=== PATIENT | male | born 1955 | race Caucasian/White ===

== ENCOUNTER 2024-02-11 16:46 | Inpatient (IN) | payer BC, MEDICAID ==
[~2024-02-11] VITALS: Ht 175.3 cm; Wt 45.4 kg
[2024-02-11 16:46] VITALS: PULSE 89; RESP 18; TEMP 97.3; O2SAT 98
[2024-02-11] MEDS: NACL 0.9% 2,000 ML IV SCH (17:55)
[2024-02-11 18:01] LABS: HEMATOCRIT 35.2 % (36-52); HEMOGLOBIN 11.4 g/dL (12.0-18.0); MEAN CORPUSCULAR HEMOGLOBIN 29 pg (27-31); MEAN CORPUSCULAR HGB CONC 32 g/dL (33-37); PLATELET COUNT (AUTO) 215 K/uL (140-450); RED BLOOD CELL COUNT(AUTO) 3.87 MIL/uL (4.20-6.10); RED CELL DISTRIBUTION WIDTH 14.8 % (11.6-13.7); WHITE BLOOD COUNT (AUTO) 17.8 K/uL (4.8-10.8)
[2024-02-11 18:14] LABS: ANION GAP 25.2 (8-16); CALCIUM 9.4 mg/dL (8.5-10.1); CARBON DIOXIDE 18.9 mmol/L (21-32); CREATININE 1.1 mg/dL (0.6-1.3); POTASSIUM 3.1 mmol/L (3.5-5.1)
[2024-02-11 18:16] LABS: INR 1.31 (0.8-1.2); PARTIAL THROMBOPLASTIN TIME 31.6 secs (22-35.6); PROTHROMBIN TIME 13.5 secs (10.8-13.4)
[2024-02-11] MEDS ORDERED: PIPERACILLIN/TAZOBACTAM 3.375 GM VIAL IV ONE (18:16)
[2024-02-11 18:20] LABS: ALANINE AMINOTRANSFERASE 3 U/L (12-78); ALBUMIN 1.6 g/dL (3.4-5.0); ALKALINE PHOSPHATASE 110 U/L (50-136); ASPARTATE AMINOTRANSFERASE 8 U/L (15-37); BILIRUBIN,DIRECT 0.4 mg/dL (0.0-0.3); CREATINE KINASE, TOTAL 9 U/L (39-308); TOTAL BILIRUBIN 0.8 mg/dL (0.0-1.0); TOTAL PROTEIN, SERUM 6.7 g/dL (6.4-8.2)
[2024-02-11] MEDS ORDERED: VANCOMYCIN 1,000 MG VIAL ONE (18:22)
[2024-02-11 18:26] LABS: LACTIC ACID 2.1 mmol/L (0.4-2.0)
[2024-02-11 18:28] LABS: LYMPHOCYTES % (MANUAL) 2 % (20-46); MONOCYTES % (MANUAL) 1 % (5-12); PLATELET ESTIMATE ADEQUATE
[2024-02-11] MEDS: PIPERACILLIN/TAZOBACTAM 3.375 GM in DEXTROSE 5% 50 ML IV ONE (18:36)
[2024-02-11] MEDS: VANCOMYCIN 1,000 MG in DEXTROSE 5% 250 ML IV ONE (18:44)
[2024-02-11] MEDS: KCL 20 MEQ IN 100 mL PREMIX 200 ML IV ONE (19:05)
[2024-02-11 19:45] LABS: APPEARANCE,URINE CLEAR (CLEAR); BILIRUBIN,URINE 1+ (NEGATIVE); BLOOD, URINE NEGATIVE (NEGATIVE); COLOR,URINE YELLOW (YELLOW); LEUKOCYTE ESTERASE ,URINE NEGATIVE (NEGATIVE); NITRITE, URINE NEGATIVE (NEGATIVE); PROTEIN,URINE NEGATIVE (NEGATIVE); UGLUCOSE 3+ (NEGATIVE); UROBILINOGEN,URINE 0.2 EU/dL (0.2 - 1)
[2024-02-11] MEDS: POTASSIUM CHLORIDE 20% 40 MEQ/15 ML UDC PO ONE ×2 (19:49→22:39)
[2024-02-11 20:32] LABS: ICTOTEST NEGATIVE (NEGATIVE)
[2024-02-11] MEDS ORDERED: OXYB5TAB44 PO (20:32)
[2024-02-11] MEDS ORDERED: IMO2 PO (20:32)
[2024-02-11] MEDS ORDERED: SITA100T8 PO (20:32)
[2024-02-11] MEDS ORDERED: DAPA10TA PO (20:32)
[2024-02-11] MEDS ORDERED: OMEP40EC23 PO (20:32)
[2024-02-11] MEDS ORDERED: PANT40EC PO (20:32)
[2024-02-11] MEDS ORDERED: GABA300C PO (20:32)
[2024-02-11] MEDS ORDERED: METF-1243 PO (20:32)
[2024-02-11] MEDS ORDERED: ATOR40TA PO (20:32)
[2024-02-11 21:12] LABS: ANION GAP 25.2 (8-16); CALCIUM 8.8 mg/dL (8.5-10.1); POTASSIUM 3.2 mmol/L (3.5-5.1)
[2024-02-11 22:00] LABS: ANION GAP 24.3 (8-16); CALCIUM 8.5 mg/dL (8.5-10.1); CARBON DIOXIDE 15.3 mmol/L (21-32); CREATININE 0.9 mg/dL (0.6-1.3); POTASSIUM 3.6 mmol/L (3.5-5.1)
[2024-02-11] MEDS ORDERED: DEXTROSE 50% 50 ML SYR IVP PRN (22:35)
[2024-02-11] MEDS ORDERED: ONDANSETRON 4 MG/2 ML VIAL IVP PRN (22:35)
[2024-02-11] MEDS: MAG SULF 2000 MG/WATER PREMIX 50 ML IV ONE (22:39)
[2024-02-11] MEDS: BLOOD GLUCOSE MONITORING 1 DEV DEV FS SCH (23:12)
[2024-02-11] MEDS: POTASSIUM CHL 20 MEQ/NACL 0.9% 1,000 ML IV SCH (23:24)
[2024-02-11] MEDS: INSULIN REGULAR, HUMAN 100 UNIT in NACL 0.9% 100 ML IV SCH (23:42)
[2024-02-12] VITALS (14 sets, daily range): BP systolic 101–127; BP diastolic 49–77; PULSE 78–95; RESP 15–20; TEMP 97.7–97.9; O2SAT 98–100
[2024-02-12] MEDS ORDERED: CLINDAMYCIN 600 MG/4 ML VIAL ONE ×2 (00:20→06:07)
[2024-02-12 00:25] LABS: BLOOD GAS PCO2 23.8 mmHg (35-45); BLOOD GAS PH 7.318 (7.35-7.45); BLOOD GAS PO2 107.5 mmHg (75-100)
[2024-02-12] MEDS: CLINDAMYCIN 600 MG in DEXTROSE 5% 50 ML IV SCH (00:25)
[2024-02-12 00:26] LABS: BLOOD GAS BASE EXCESS -12.4 mmol/L (-2.0-2.0); BLOOD GAS HCO3 11.9 mmol/L (22-26); BLOOD GAS O2 SAT% 98.1 % (92.0-98.5)
[2024-02-12 00:34] LABS: FLU A ANTIGEN negative (NEGATIVE); FLU B ANTIGEN NEGATIVE (NEGATIVE)
[2024-02-12 01:21] LABS: ANION GAP 20.1 (8-16); CALCIUM 8.4 mg/dL (8.5-10.1); CARBON DIOXIDE 16.9 mmol/L (21-32); CREATININE 0.9 mg/dL (0.6-1.3)
[2024-02-12 01:22] LABS: MAGNESIUM 2.8 mg/dL (1.8-2.4); PHOSPHORUS 1.3 mg/dL (2.5-4.9)
[2024-02-12 01:43] LABS: FLU A ANTIGEN negative (NEGATIVE); FLU B ANTIGEN NEGATIVE (NEGATIVE)
[2024-02-12 04:04] LABS: BASOPHILS % (AUTO) 0.3 % (0.0-2.0); HEMATOCRIT 31.1 % (36-52); HEMOGLOBIN 10.5 g/dL (12.0-18.0); LYMPHOCYTES # (AUTO) 0.3 K/uL (2.0-11.5); LYMPHOCYTES % (AUTO) 1.8 % (20.5-51.1); MEAN CORPUSCULAR HEMOGLOBIN 29 pg (27-31); MEAN CORPUSCULAR HGB CONC 34 g/dL (33-37); MEAN CORPUSCULAR VOLUME 87.1 fL (80-94); MONOCYTES # (AUTO) 0.7 K/uL (0.8-1.0); MONOCYTES % (AUTO) 3.9 % (1.7-9.3); NEUTROPHILS # (AUTO) 17.2 K/uL (1.8-7.7); PLATELET COUNT (AUTO) 196 K/uL (140-450); RED BLOOD CELL COUNT(AUTO) 3.57 MIL/uL (4.20-6.10); RED CELL DISTRIBUTION WIDTH 14.3 % (11.6-13.7); WHITE BLOOD COUNT (AUTO) 18.3 K/uL (4.8-10.8)
[2024-02-12 04:14] LABS: ANION GAP 15.1 (8-16); CALCIUM 8.4 mg/dL (8.5-10.1); CARBON DIOXIDE 20.8 mmol/L (21-32)
[2024-02-12 04:16] LABS: MAGNESIUM 2.6 mg/dL (1.8-2.4)
[2024-02-12 04:27] LABS: POTASSIUM 2.9 mmol/L (3.5-5.1)
[2024-02-12 04:29] LABS: PHOSPHORUS 0.8 mg/dL (2.5-4.9)
[2024-02-12] MEDS ORDERED: POTASSIUM CHL 40 MEQ/ D5-1/2NS 0 ML IV ONE (05:11)
[2024-02-12] MEDS ORDERED: KCL 20 MEQ IN 100 mL PREMIX 200 ML IV ONE (05:21)
[2024-02-12] MEDS: KCL 20 MEQ IN 100 mL PREMIX 200 ML IV SCH (05:27)
[2024-02-12] MEDS ORDERED: SODIUM PHOS / POTASSIUM PHOS 1 PKT PDR ONE ×2 (05:32→06:24)
[2024-02-12] MEDS: SODIUM PHOS / POTASSIUM PHOS 1 PKT PDR PO SCH (06:30)
[2024-02-12] MEDS: POTASSIUM PHOSPHATE 15 MM in NACL 0.9% 250 ML IV SCH ×3 (06:38→22:46)
[2024-02-12] MEDS: DEXT 5% / NACL 0.45% 1,000 ML IV ONE (06:57)
[2024-02-12] MEDS ORDERED: VANCOMYCIN PER PHARMACY MC PRN (08:25)
[2024-02-12 08:51] LABS: ANION GAP 10.5 (8-16); CALCIUM 8.3 mg/dL (8.5-10.1); CARBON DIOXIDE 24.4 mmol/L (21-32); CREATININE 0.8 mg/dL (0.6-1.3); POTASSIUM 3.9 mmol/L (3.5-5.1)
[2024-02-12 08:55] LABS: MAGNESIUM 2.3 mg/dL (1.8-2.4)
[2024-02-12] MEDS: DOCUSATE SODIUM 100 MG GELCAP PO SCH (09:00)
[2024-02-12] MEDS: GABAPENTIN 300 MG CAP PO SCH (09:00)
[2024-02-12] MEDS: ATORVASTATIN 20 MG TAB PO SCH (09:00)
[2024-02-12 09:14] LABS: PHOSPHORUS 0.8 mg/dL (2.5-4.9)
[2024-02-12 09:23] LABS: CHOL/HDL RATIO 1.9 (1-4.5)
[2024-02-12 10:24] LABS: BLOOD GAS PH 7.572 (7.35-7.45)
[2024-02-12 10:25] LABS: BLOOD GAS HCO3 20.7 mmol/L (22-26)
[2024-02-12 10:26] LABS: BLOOD GAS O2 SAT% 98.8 % (92.0-98.5)
[2024-02-12] MEDS: PANTOPRAZOLE 40 MG INJ VIAL IVP SCH (10:44)
[2024-02-12] MEDS: VANCOMYCIN 500 MG in NACL 0.9% 100 ML IV SCH (10:45)
[2024-02-12] MEDS: CLINDAMYCIN 600MG/D5W PM 50 ML IV SCH (12:24)
[2024-02-12] MEDS: PIPERACILLIN/TAZOBACTAM 3.375 GM in DEXTROSE 5% 50 ML IV SCH (12:27)
[2024-02-12 12:52] LABS: CREATININE 0.7 mg/dL (0.6-1.3)
[2024-02-12 12:57] LABS: MAGNESIUM 2.2 mg/dL (1.8-2.4)
[2024-02-12 12:58] LABS: ANION GAP 8.8 (8-16); CALCIUM 8.2 mg/dL (8.5-10.1); CARBON DIOXIDE 25.8 mmol/L (21-32)
[2024-02-12 13:03] LABS: PHOSPHORUS 0.8 mg/dL (2.5-4.9); POTASSIUM 2.6 mmol/L (3.5-5.1)
[2024-02-12] MEDS: HYDROGEN PEROXIDE 3% 240 ML BTL TP ONE (13:23)
[2024-02-12] MEDS: LIDOCAINE MPF 1% 5 ML ONE (13:23)
[2024-02-12] MEDS: BUPIVACAINE-MPF 0.5% 30 ML VIAL INJ ONE (14:55)
[2024-02-12] MEDS: LIDOCAINE/EPI MPF 2%1:200000 10 ML VIAL INJ ONE (14:58)
[2024-02-12 14:59] LABS: ANION GAP 10.2 (8-16); CARBON DIOXIDE 23.8 mmol/L (21-32); CREATININE 0.6 mg/dL (0.6-1.3)
[2024-02-12] MEDS: MIDAZOLAM 2 MG/2 ML VIAL ONE (15:50)
[2024-02-12] MEDS: fentaNYL citrate 0.05 MG/ML VIAL ONE (16:00)
[2024-02-12] MEDS: LIDOCAINE 2% 1000 MG/50 ML VIAL INJ ONE (16:05)
[2024-02-12] MEDS: ONDANSETRON 4 MG/2 ML VIAL ONE (16:48)
[2024-02-12] MEDS ORDERED: POTASSIUM PHOSPHATE 15 MM in NACL 0.9% 250 ML IV SCH (18:00)
[2024-02-12 19:01] LABS: ANION GAP 12.1 (8-16); CALCIUM 7.6 mg/dL (8.5-10.1); CARBON DIOXIDE 22.6 mmol/L (21-32); CREATININE 0.5 mg/dL (0.6-1.3)
[2024-02-12 19:02] LABS: POTASSIUM 2.7 mmol/L (3.5-5.1)
[2024-02-13] VITALS (21 sets, daily range): BP systolic 99–120; BP diastolic 48–70; PULSE 73–98; RESP 13–22; TEMP 97–98.1; O2SAT 96–99
[2024-02-13 00:58] LABS: ANION GAP 7.8 (8-16); CALCIUM 7.5 mg/dL (8.5-10.1); CARBON DIOXIDE 27.4 mmol/L (21-32); CREATININE 0.5 mg/dL (0.6-1.3)
[2024-02-13 00:59] LABS: MAGNESIUM 1.9 mg/dL (1.8-2.4); PHOSPHORUS 1.6 mg/dL (2.5-4.9)
[2024-02-13 01:02] LABS: POTASSIUM 2.2 mmol/L (3.5-5.1)
[2024-02-13 04:16] LABS: BASOPHILS % (AUTO) 0.1 % (0.0-2.0); EOSINOPHILS % (AUTO) 0.1 % (0.0-4.0); HEMATOCRIT 29.3 % (36-52); LYMPHOCYTES # (AUTO) 0.4 K/uL (2.0-11.5); LYMPHOCYTES % (AUTO) 3.3 % (20.5-51.1); MEAN CORPUSCULAR HEMOGLOBIN 29 pg (27-31); MEAN CORPUSCULAR HGB CONC 34 g/dL (33-37); MEAN CORPUSCULAR VOLUME 86.2 fL (80-94); MONOCYTES # (AUTO) 0.3 K/uL (0.8-1.0); MONOCYTES % (AUTO) 2.2 % (1.7-9.3); NEUTROPHILS # (AUTO) 11.6 K/uL (1.8-7.7); NEUTROPHILS % (AUTO) 94.3 % (42.2-75.2); PLATELET COUNT (AUTO) 157 K/uL (140-450); RED CELL DISTRIBUTION WIDTH 14.3 % (11.6-13.7); WHITE BLOOD COUNT (AUTO) 12.3 K/uL (4.8-10.8)
[2024-02-13 04:42] LABS: MAGNESIUM 1.9 mg/dL (1.8-2.4); PHOSPHORUS 1.6 mg/dL (2.5-4.9)
[2024-02-13 04:47] LABS: CALCIUM 7.3 mg/dL (8.5-10.1); CARBON DIOXIDE 25.1 mmol/L (21-32); CREATININE 0.6 mg/dL (0.6-1.3)
[2024-02-13 04:48] LABS: POTASSIUM 2.1 mmol/L (3.5-5.1)
[2024-02-13] MEDS: KCL 20 MEQ IN 100 mL PREMIX 200 ML IV ONE (08:51)
[2024-02-13] MEDS: INSULIN LANTUS 100 UNITS/ML 10 ML VIAL SUBQ SCH (10:38)
[2024-02-13] MEDS: BLOOD GLUCOSE MONITORING 1 DEV DEV FS SCH (11:36)
[2024-02-13] MEDS: VANCOMYCIN 750 MG in NACL 0.9% 250 ML IV SCH (11:43)
[2024-02-13] MEDS: BUPIVACAINE-MPF 0.5% 30 ML VIAL INJ ONE (14:17)
[2024-02-14] VITALS (7 sets, daily range): BP systolic 90–139; BP diastolic 46–73; PULSE 68–91; RESP 16–19; TEMP 97–98.4; O2SAT 96–99
[2024-02-14 07:37] LABS: BASOPHILS % (AUTO) 0.1 % (0.0-2.0); EOSINOPHILS % (AUTO) 0.2 % (0.0-4.0); HEMATOCRIT 27.2 % (36-52); HEMOGLOBIN 9.4 g/dL (12.0-18.0); LYMPHOCYTES # (AUTO) 0.5 K/uL (2.0-11.5); LYMPHOCYTES % (AUTO) 8.1 % (20.5-51.1); MEAN CORPUSCULAR HEMOGLOBIN 30 pg (27-31); MEAN CORPUSCULAR HGB CONC 34 g/dL (33-37); MEAN CORPUSCULAR VOLUME 85.6 fL (80-94); MONOCYTES # (AUTO) 0.2 K/uL (0.8-1.0); MONOCYTES % (AUTO) 3.6 % (1.7-9.3); NEUTROPHILS # (AUTO) 5.1 K/uL (1.8-7.7); PLATELET COUNT (AUTO) 117 K/uL (140-450); RED BLOOD CELL COUNT(AUTO) 3.18 MIL/uL (4.20-6.10); RED CELL DISTRIBUTION WIDTH 14.3 % (11.6-13.7); WHITE BLOOD COUNT (AUTO) 5.8 K/uL (4.8-10.8)
[2024-02-14 09:35] LABS: ANION GAP 7.2 (8-16); CALCIUM 6.8 mg/dL (8.5-10.1); CARBON DIOXIDE 28.9 mmol/L (21-32); CREATININE 0.5 mg/dL (0.6-1.3)
[2024-02-14 10:13] LABS: POTASSIUM 2.1 mmol/L (3.5-5.1)
[2024-02-14] MEDS: POTASSIUM CHLORIDE 40 MEQ, LIDOCAINE 1% 25 MG in NACL 0.9% 250 ML IV ONE (11:45)
[2024-02-14] MEDS: BENZOCAINE/MENTHOL 1 LOZ MM PRN (12:11)
[2024-02-14] MEDS: INSULIN LISPRO SLIDING SCALE 100 UNITS/ML VIAL SUBQ PRN (21:18)
[2024-02-14] MEDS: INSULIN LANTUS 100 UNITS/ML 10 ML VIAL SUBQ SCH (21:25)
[2024-02-14 23:19] LABS: BLOOD GAS BASE EXCESS 4.2 mmol/L (-2.0-2.0); BLOOD GAS HCO3 26.5 mmol/L (22-26); BLOOD GAS O2 SAT% 97.5 % (92.0-98.5); BLOOD GAS PCO2 31.4 mmHg (35-45); BLOOD GAS PH 7.544 (7.35-7.45); BLOOD GAS PO2 93.7 mmHg (75-100)
[2024-02-15] VITALS (7 sets, daily range): BP systolic 114–117; BP diastolic 61–62; PULSE 80–87; RESP 17–19; TEMP 97.4–98.6; O2SAT 96–99
[2024-02-15 06:42] LABS: BASOPHILS % (AUTO) 0.1 % (0.0-2.0); EOSINOPHILS % (AUTO) 0.4 % (0.0-4.0); HEMATOCRIT 28.4 % (36-52); HEMOGLOBIN 9.9 g/dL (12.0-18.0); LYMPHOCYTES # (AUTO) 0.6 K/uL (2.0-11.5); MEAN CORPUSCULAR HEMOGLOBIN 30 pg (27-31); MEAN CORPUSCULAR HGB CONC 35 g/dL (33-37); MEAN CORPUSCULAR VOLUME 85.1 fL (80-94); MONOCYTES # (AUTO) 0.2 K/uL (0.8-1.0); MONOCYTES % (AUTO) 5.6 % (1.7-9.3); NEUTROPHILS # (AUTO) 2.6 K/uL (1.8-7.7); NEUTROPHILS % (AUTO) 75.9 % (42.2-75.2); PLATELET COUNT (AUTO) 97 K/uL (140-450); RED BLOOD CELL COUNT(AUTO) 3.34 MIL/uL (4.20-6.10); RED CELL DISTRIBUTION WIDTH 13.9 % (11.6-13.7); WHITE BLOOD COUNT (AUTO) 3.4 K/uL (4.8-10.8)
[2024-02-16] VITALS: BP 113/58; PULSE 87; RESP 18; TEMP 97.4; O2SAT 97
[2024-02-16 02:16] VITALS: O2SAT 97
[2024-02-16 04:57] VITALS: O2SAT 97
[2024-02-16 06:21] LABS: BASOPHILS % (AUTO) 0.1 % (0.0-2.0); EOSINOPHILS % (AUTO) 0.4 % (0.0-4.0); HEMATOCRIT 27.7 % (36-52); HEMOGLOBIN 9.7 g/dL (12.0-18.0); LYMPHOCYTES # (AUTO) 0.6 K/uL (2.0-11.5); LYMPHOCYTES % (AUTO) 15.8 % (20.5-51.1); MEAN CORPUSCULAR HEMOGLOBIN 30 pg (27-31); MEAN CORPUSCULAR HGB CONC 35 g/dL (33-37); MEAN CORPUSCULAR VOLUME 84.4 fL (80-94); MONOCYTES # (AUTO) 0.3 K/uL (0.8-1.0); MONOCYTES % (AUTO) 6.9 % (1.7-9.3); NEUTROPHILS # (AUTO) 3.1 K/uL (1.8-7.7); NEUTROPHILS % (AUTO) 76.8 % (42.2-75.2); PLATELET COUNT (AUTO) 86 K/uL (140-450); RED BLOOD CELL COUNT(AUTO) 3.29 MIL/uL (4.20-6.10); RED CELL DISTRIBUTION WIDTH 13.9 % (11.6-13.7)
[2024-02-16 08:00] VITALS: BP 115/68; PULSE 73; RESP 17; TEMP 97.6; O2SAT 98
[2024-02-16 16:00] VITALS: BP 124/66; PULSE 79; RESP 18; TEMP 98.1; O2SAT 98
[2024-02-16 20:00] VITALS: BP 102/60; PULSE 87; RESP 18; TEMP 98; O2SAT 98
[2024-02-17 04:00] VITALS: BP 109/64; PULSE 78; RESP 18; TEMP 97.6; O2SAT 98
[2024-02-17 06:22] LABS: BASOPHILS % (AUTO) 0.2 % (0.0-2.0); EOSINOPHILS % (AUTO) 0.2 % (0.0-4.0); HEMATOCRIT 28.7 % (36-52); HEMOGLOBIN 9.9 g/dL (12.0-18.0); LYMPHOCYTES # (AUTO) 0.7 K/uL (2.0-11.5); LYMPHOCYTES % (AUTO) 14.8 % (20.5-51.1); MEAN CORPUSCULAR HEMOGLOBIN 29 pg (27-31); MEAN CORPUSCULAR HGB CONC 35 g/dL (33-37); MONOCYTES # (AUTO) 0.5 K/uL (0.8-1.0); MONOCYTES % (AUTO) 8.9 % (1.7-9.3); NEUTROPHILS # (AUTO) 3.8 K/uL (1.8-7.7); NEUTROPHILS % (AUTO) 75.9 % (42.2-75.2); PLATELET COUNT (AUTO) 96 K/uL (140-450); RED BLOOD CELL COUNT(AUTO) 3.42 MIL/uL (4.20-6.10); RED CELL DISTRIBUTION WIDTH 13.9 % (11.6-13.7); WHITE BLOOD COUNT (AUTO) 5.1 K/uL (4.8-10.8)
[2024-02-17 07:58] VITALS: TEMP 97.9
[2024-02-17 07:59] VITALS: RESP 20; O2SAT 99
[2024-02-17] MEDS ORDERED: VANCOMYCIN PER PHARMACY MC PRN (08:20)
[2024-02-17] MEDS ORDERED: GAUZE TP PRN (12:55)
[2024-02-17] MEDS: GAUZE TP SCH (13:00)
[2024-02-17] MEDS: HYDROcodone/APAP 5/325 MG 1 TAB TAB PO PRN (18:01)
[2024-02-17 20:00] VITALS: BP 129/62; PULSE 82; RESP 18; TEMP 97.8; O2SAT 97
[2024-02-18] VITALS (7 sets, daily range): BP systolic 105–119; BP diastolic 58–62; PULSE 78–95; RESP 18–22; TEMP 97.1–98.4; O2SAT 95–99
[2024-02-18 07:08] LABS: BASOPHILS % (AUTO) 0.2 % (0.0-2.0); EOSINOPHILS % (AUTO) 0.4 % (0.0-4.0); HEMATOCRIT 27.3 % (36-52); HEMOGLOBIN 9.5 g/dL (12.0-18.0); LYMPHOCYTES # (AUTO) 0.7 K/uL (2.0-11.5); LYMPHOCYTES % (AUTO) 18.3 % (20.5-51.1); MEAN CORPUSCULAR HEMOGLOBIN 29 pg (27-31); MEAN CORPUSCULAR HGB CONC 35 g/dL (33-37); MEAN CORPUSCULAR VOLUME 83.6 fL (80-94); MONOCYTES # (AUTO) 0.4 K/uL (0.8-1.0); MONOCYTES % (AUTO) 9.9 % (1.7-9.3); NEUTROPHILS # (AUTO) 2.9 K/uL (1.8-7.7); NEUTROPHILS % (AUTO) 71.2 % (42.2-75.2); PLATELET COUNT (AUTO) 100 K/uL (140-450); RED BLOOD CELL COUNT(AUTO) 3.27 MIL/uL (4.20-6.10)
[2024-02-18 07:12] LABS: ANION GAP 6.7 (8-16); CARBON DIOXIDE 32.2 mmol/L (21-32); CREATININE 0.4 mg/dL (0.6-1.3)
[2024-02-18 07:51] LABS: POTASSIUM 1.9 mmol/L (3.5-5.1)
[2024-02-18] MEDS: POTASSIUM CHLORIDE 40 MEQ, LIDOCAINE 1% 25 MG in NACL 0.9% 250 ML IV SCH ×2 (09:53→17:50)
[2024-02-18] MEDS: POTASSIUM CHLORIDE 10 MEQ TABER PO SCH (09:53)
[2024-02-18] MEDS: POTASSIUM CHLORIDE 20% 40 MEQ/15 ML UDC PO SCH (11:58)
[2024-02-18 15:34] LABS: ANION GAP 3.1 (8-16); CALCIUM 6.8 mg/dL (8.5-10.1); CARBON DIOXIDE 34.7 mmol/L (21-32); CREATININE 0.6 mg/dL (0.6-1.3)
[2024-02-18 15:36] LABS: POTASSIUM 2.8 mmol/L (3.5-5.1)
[2024-02-18] MEDS: ZOLPIDEM 5 MG TAB PO PRN (21:04)
[2024-02-19 08:00] VITALS: BP 126/66; PULSE 92; RESP 18; TEMP 97.6; O2SAT 96
[2024-02-19 09:59] LABS: ANION GAP 7.5 (8-16); BASOPHILS % (AUTO) 0.2 % (0.0-2.0); CALCIUM 7.2 mg/dL (8.5-10.1); CARBON DIOXIDE 31.6 mmol/L (21-32); CREATININE 0.5 mg/dL (0.6-1.3); EOSINOPHILS % (AUTO) 0.4 % (0.0-4.0); HEMATOCRIT 27.6 % (36-52); HEMOGLOBIN 9.3 g/dL (12.0-18.0); LYMPHOCYTES # (AUTO) 0.6 K/uL (2.0-11.5); LYMPHOCYTES % (AUTO) 13.2 % (20.5-51.1); MEAN CORPUSCULAR HEMOGLOBIN 29 pg (27-31); MEAN CORPUSCULAR HGB CONC 34 g/dL (33-37); MEAN CORPUSCULAR VOLUME 84.6 fL (80-94); MONOCYTES # (AUTO) 0.3 K/uL (0.8-1.0); MONOCYTES % (AUTO) 7.1 % (1.7-9.3); NEUTROPHILS # (AUTO) 3.8 K/uL (1.8-7.7); NEUTROPHILS % (AUTO) 79.1 % (42.2-75.2); PLATELET COUNT (AUTO) 126 K/uL (140-450); POTASSIUM 3.1 mmol/L (3.5-5.1); RED BLOOD CELL COUNT(AUTO) 3.26 MIL/uL (4.20-6.10); WHITE BLOOD COUNT (AUTO) 4.8 K/uL (4.8-10.8)
[2024-02-19] MEDS: VANCOMYCIN 1,000 MG in DEXTROSE 5% 250 ML IV SCH (11:54)
[2024-02-19] MEDS ORDERED: POTASSIUM CHLORIDE 10 MEQ TABER PO SCH (13:33)
[2024-02-19] MEDS: POTASSIUM CHLORIDE 20% 40 MEQ/15 ML UDC GT SCH (14:34)
[2024-02-19] MEDS: POTASSIUM CHLORIDE 40 MEQ, LIDOCAINE 1% 25 MG in NACL 0.9% 250 ML IV SCH (14:55)
[2024-02-19 16:00] VITALS: BP 117/73; PULSE 99; RESP 18; TEMP 98.2; O2SAT 99
[2024-02-19] MEDS ORDERED: SULF-58 PO (16:56)
[2024-02-19] MEDS ORDERED: LEVO750T75 PO (16:57)
[2024-02-19] MEDS ORDERED: INSU100S22 SUBQ (17:00)
== END 2024-02-19 19:10 | DRG 853 ==
LOC: MED 16:46 → MTU 22:41 → MIC 02-12 05:22 → MTU 02-13 16:05
PROVIDERS: ADMIT Student in an Organized Health Care Education/Training Program; ATTEND Student in an Organized Health Care Education/Training Program
PROC: 0Y6N0Z0 Detachment at Left Foot, Complete, Open Approach (ICD-10-PCS; 2024-02-12)
PROC: 3E0T3BZ Introduction of Anesthetic Agent into Peripheral Nerves and Plexi, Percutaneous Approach (ICD-10-PCS; 2024-02-12)
PROC: 02HV33Z Insertion of Infusion Device into Superior Vena Cava, Percutaneous Approach (ICD-10-PCS; 2024-02-12)
PROC: B548ZZA Ultrasonography of Superior Vena Cava, Guidance (ICD-10-PCS; 2024-02-12)
PROC: 0Y9J0ZX Drainage of Left Lower Leg, Open Approach, Diagnostic (ICD-10-PCS; 2024-02-12)
PROC: 0QBH0ZZ Excision of Left Tibia, Open Approach (ICD-10-PCS; principal; 2024-02-12 14:00)
DX: A41.01 Sepsis due to Methicillin susceptible Staphylococcus aureus (principal); E11.10 Type 2 diabetes mellitus with ketoacidosis without coma; G93.41 Metabolic encephalopathy; E43 Unspecified severe protein-calorie malnutrition; M72.6 Necrotizing fasciitis; L03.116 Cellulitis of left lower limb; M86.8X6 Other osteomyelitis, lower leg; Z68.1 Body mass index [BMI] 19.9 or less, adult; L97.429 Non-pressure chronic ulcer of left heel and midfoot with unspecified severity; E83.39 Other disorders of phosphorus metabolism; Z20.822 Contact with and (suspected) exposure to COVID-19; K21.9 Gastro-esophageal reflux disease without esophagitis; E11.65 Type 2 diabetes mellitus with hyperglycemia; L08.9 Local infection of the skin and subcutaneous tissue, unspecified; E11.621 Type 2 diabetes mellitus with foot ulcer; E87.6 Hypokalemia; E11.22 Type 2 diabetes mellitus with diabetic chronic kidney disease; N18.9 Chronic kidney disease, unspecified; Z79.84 Long term (current) use of oral hypoglycemic drugs; Z79.899 Other long term (current) drug therapy; E11.69 Type 2 diabetes mellitus with other specified complication; E11.51 Type 2 diabetes mellitus with diabetic peripheral angiopathy without gangrene
CPT/HCPCS: 36415; 36600; 71045; 73590; 73630; 80048; 80076; 80202; 81003; 82009; 82550; 82803; 82948; 83036; 83605; 83735; 83880; 84100; 84484; 85025; 85610; 85730; 87040; 87070; 87075; 87081; 87186; 87205; 88307; 93005; 96361; 96365; 96368; 97110; 97112; 97163-GP; 97530; 99285; C9113; J1815; J2001; J2250; J2405; J2543; J3010; J3370; J3475; J3480; J3490; J7030; J7060; Q0092